=== PATIENT | male | born 1955 | race Caucasian/White ===

== ENCOUNTER 2017-10-27 10:45 | Outpatient (CLI) | payer MEDICARE ==
--- NOTE | 2017-10-27 12:03 | RAD ---
LUMBAR SPINE THREE VIEWS: HISTORY: Low back pain. FINDINGS: Degenerative changes are present. There is anterior wedge compression of the superior endplate of th e T11 vertebral body. No subluxation is seen. POS: [facility]
== END 2017-10-27 10:46 | disposition home or self-care (01) ==
LOC: RAD-FRANK 10:45
PROVIDERS: ATTEND Nurse Practitioner Family
DX: M54.5 Low back pain (principal); M47.896 Other spondylosis, lumbar region; S22.080A Wedge compression fracture of T11-T12 vertebra, initial encounter for closed fracture
CPT/HCPCS: 72100

== ENCOUNTER 2018-01-20 09:31 | Outpatient (CLI) | payer MEDICARE ==
--- NOTE | 2018-01-20 10:15 | RAD ---
THREE VIEWS THORACIC SPINE: Indication: Back pain. Comparison: None. FINDINGS: There is mild wedge compression abnormality of T12. The mild wedge compression abnormality is stable to a comparison radiograph of the lumbar spine dated 10-27-17.There is diffuse osteopenia. There is mu ltilevel spondylosis of the thoracic spine. There is mild scoliosis. No additional acute osseous abno rmality is evident. IMPRESSION: Mild wedge compression abnormality of T12. This is stable since 10-27-17 from a lumbar spine radiogra ph from [facility]. POS: [facility]
--- NOTE | 2018-01-20 10:16 | RAD ---
LUMBAR SPINE 2 VIEWS: HISTORY: Low back pain. Collapsed vertebrae. COMPARISON: Comparison is made to the exam of 10/27/2017. FINDINGS: There are 12 rib-bearing thoracic-type vertebrae. There are rudimentary ribs at what will be designa radha as L1. This gives 6 lumbar-type vertebrae with L6 being transitional. The compression deformity was previously described at T11, but this will be designated as T12 on today's exam. The compression deformity at T12 shows no interval change when compared to 10/27/2017. There is mild anterior wedging with loss of anterior height in the 20% range. Posterior alignment is preserved wit h no evidence of retropulsion. The lumbar vertebrae maintain height and alignment with mild degenerative spurring. No significant i nterval change. IMPRESSION: Compression deformity at T12 is stable in appearance. POS: [facility]
== END 2018-01-20 09:32 | disposition home or self-care (01) ==
LOC: TBSIIMAG 09:31
PROVIDERS: ATTEND Neurological Surgery
DX: M48.56XA Collapsed vertebra, not elsewhere classified, lumbar region, initial encounter for fracture (principal); M43.8X4 Other specified deforming dorsopathies, thoracic region
CPT/HCPCS: 72072; 72100

== ENCOUNTER 2018-02-08 15:41 | Outpatient (CLI) | payer MEDICARE ==
--- NOTE | 2018-02-08 16:30 | RAD ---
FOUR VIEW LUMBAR SPINE: 02/08/18 INDICATION: Spondylolisthesis of the lumbar region. FINDINGS: There is no evidence of acute fracture or subluxation of the lumbar spine. There is mild superior end plate height loss of T11, age indeterminate. Multilevel facet sclerosis is present. IMPRESSION: 1. No acute osseous abnormality lumbar spine. 2. Mild age indeterminate superior height loss of T11. Recommend clinical correlation and as nec essary, dedicated imaging followup may be beneficial. 3. There is no significant abnormal translational motion of the lumbar spine. POS: [facility]
== END 2018-02-08 15:42 | disposition home or self-care (01) ==
LOC: BICRAD 15:41
PROVIDERS: ATTEND Specialist
DX: M43.16 Spondylolisthesis, lumbar region (principal)
CPT/HCPCS: 72110

== ENCOUNTER 2019-01-17 15:11 | Outpatient (CLI) | payer MEDICARE ==
--- NOTE | 2019-01-17 15:28 | RAD ---
Exam: XR Foot Lt 3 View STANDARD HISTORY: Left foot pain. COMPARISON: None FINDINGS: Multiple metallic screws overlie the distal left tibia. Remote fracture deformity of the distal left tibia is present. Minimal degenerative changes are seen involving the midfoot. A tiny plantar calcaneal enthesophyte is seen. No acute fracture, dislocation, or other acute osseous abnormality is identified. IMPRESSION: No acute osseous abnormality is identified.
--- NOTE | 2019-01-18 07:34 | RAD ---
EXAM: 3 views of the right ankle HISTORY: Ankle pain COMPARISON: None FINDINGS: 3 views of the right ankle shows no evidence of acute fracture or dislocation. Moderate dif fuse soft tissue swelling is seen. No degenerative changes are present. IMPRESSION: No evidence of acute osseous abnormality.
== END 2019-01-17 15:12 | disposition home or self-care (01) ==
LOC: RAD-FRANK 15:11
PROVIDERS: ATTEND Nurse Practitioner Family
DX: M25.571 Pain in right ankle and joints of right foot (principal); M79.672 Pain in left foot

== ENCOUNTER 2019-06-07 14:06 | Outpatient (CLI) | payer MEDICARE ==
--- NOTE | 2019-06-07 14:20 | RAD ---
2 VIEWS CHEST: Date: 06/07/2019 COMPARISON: 04/15/2009. HISTORY: Cough. FINDINGS: Two views of the chest show an enlarged cardiomediastinal silhouette. There is no evidence of consoli dation, mass, or pleural effusion. The bones are unremarkable. IMPRESSION: Cardiomegaly. POS: [facility]
== END 2019-06-07 14:07 | disposition home or self-care (01) ==
LOC: RAD-FRANK 14:06
PROVIDERS: ATTEND Nurse Practitioner Family
DX: R05 Cough (principal); I51.7 Cardiomegaly
CPT/HCPCS: 71046